=== PATIENT | male | born 1995 | race Caucasian/White ===

== ENCOUNTER → 2017-09-20 | Outpatient (CLI) | payer SELFPAY ==
[~2017-09-20] MED LIST: AMOXICILLIN 50500 MG PO; FLEXERIL 1010 MG/TAB PO; NAPROSYN500 MG PO; NO HOME MEDICATIONS; NORCO 325 MG-51 TAB PO
[2017-09-20 12:27] LABS: HEMATOCRIT 43.5 % (42.0-52.0); HEMOGLOBIN 15.4 g/dl (13.5-18.0); MEAN CELL VOLUME 85 fl (80.0-100.0); MEAN CORPUSCULAR HEMOGLOBIN 30 pg (27.0-31.0); MEAN CORPUSCULAR HGB CONC 35 g/dl (33.0-37.0); PLATELET COUNT 141 K/mm3 (130-400); RED BLOOD COUNT 5.12 M/mm3 (4.20-5.60); REDCELL DISTRIBUTION WIDTH-CV 11.9 % (11.5-14.5)
[2017-09-20 12:40] LABS: ALBUMIN 4.3 gm/dL (3.5-5.0); BILIRUBIN,TOTAL 0.9 mg/dL (0.0-1.0); CALCIUM 9.7 mg/dL (8.4-10.2); CHOLESTEROL RISK RATIO 6.1; CREATININE, serum 0.75 mg/dL (0.66-1.25); TOTAL PROTEIN 8.6 gm/dL (6.4-8.2)
== END ==
LOC: COL.LAB 11:15
PROVIDERS: Family Medicine
DX: Z01.89 Encounter for other specified special examinations (principal)

== ENCOUNTER 2021-09-04 10:34 | Emergency (ER) | payer SELFPAY ==
[~2021-09-04] VITALS: Ht 180.3 cm; Wt 127.3 kg
[2021-09-04 10:49] VITALS: BP 138/79; PULSE 82; TEMP 98
[2021-09-04] MEDS ORDERED: NAPROSYN500 MG PO (11:15)
== END 2021-09-04 11:40 | disposition home or self-care (01) ==
LOC: COL.ER 10:34
DX: M72.2 Plantar fascial fibromatosis (principal)